=== PATIENT | male | born 2000 ===

== ENCOUNTER 2020-10-14 20:56 | Emergency (ER) | payer SELFPAY ==
[2020-10-14 21:25] LABS: Basophils % 1.2 % (0-1.3); MPV 9.6 fL (7.6-11.3); RBC Red Blood Cell Count 5.24 M/uL (4.33-5.43)
[2020-10-14] MEDS ORDERED: MORPHINE 2 MG/ML SYR ONE (21:32)
[2020-10-14 21:45] LABS: Protime INR 1.03
[2020-10-14 21:56] LABS: ALT/SGPT 54 U/L (12-78); AST/SGOT 27 U/L (15-37); Albumin 4.3 g/dL (3.4-5.0); Alkaline Phosphatase 150 U/L (45-117); BUN Blood Urea Nitrogen 21 mg/dL (7-18); Bicarbonate 25 mmol/L (21-32); Bilirubin Direct 0.1 mg/dL (0-0.2); Bilirubin Total 0.5 mg/dL (0.2-1.0); Glucose Level 93 mg/dL (74-106); Potassium 3.3 mmol/L (3.5-5.1); Protein, Total 7.6 g/dL (6.4-8.2); Sodium Level 141 mmol/L (136-145); Troponin (Emerg Dept Use Only) < 0.02 ng/mL (0.0-0.045)
--- NOTE | 2020-10-14 23:14 | EDPHYS ---
Physician Documentation [facility] Name: Marquise Quezada Age: 19 yrs Sex: Male : 2000 Arrival Date: 10/14/2020 Time: 20:58 Bed 6 Private MD: ED Physician Dereje Leblanc HPI: 10/14 21:10 This 19 yrs old Male presents to ER via EMS with complaints of Crush Injury - approx 5 cp mins pinned under a vehicle. 21:10 The patient or guardian reports chest pain that is located primarily in the anterior cp chest wall, right. The pain does not radiate. 21:10 Patient reports he was working underneath car in prone position when vehicle fell from ramana onto back pinning him against floor for approximately 5 minutes. Historical: - Allergies: 21:05 No Known Allergies; rr5 - Home Meds: 21:05 keeps hair medication [Active]; rr5 - PMHx: 21:05 None; rr5 - PSHx: 21:05 None; rr5 - Immunization history:: Adult Immunizations up to date. - Social history:: Smoking status: unknown Patient uses alcohol, occasionally. - Immunization history: Last tetanus immunization: unknown. ROS: 21:15 Constitutional: Negative for body aches, chills, fever, poor PO intake. cp 21:15 Eyes: Negative for injury, pain, redness, and discharge. cp 21:15 Neck: Negative for pain with movement, pain at rest, stiffness. 21:15 Cardiovascular: Positive for chest pain, Negative for edema, palpitations. 21:15 Respiratory: Negative for cough, shortness of breath, wheezing. 21:15 Abdomen/GI: Negative for abdominal pain, nausea, vomiting, and diarrhea. 21:15 MS/extremity: Negative for injury or acute deformity, decreased range of motion, paresthesias. 21:15 Neuro: Negative for altered mental status, headache, loss of consciousness, syncope, weakness. 21:15 All other systems are negative. Exam: 21:20 ECG was reviewed by the Attending Physician. cp 21:22 Constitutional: The patient appears in no acute distress, alert, awake, cp non-diaphoretic, non-toxic, well developed, well nourished. 21:22 Head/Face: Normocephalic, atraumatic. cp 21:22 Eyes: Periorbital structures: appear normal, Conjunctiva: normal, no exudate, no injection, Lids and lashes: appear normal, bilaterally. 21:22 ENT: External ear(s): are unremarkable, Nose: is normal, Posterior pharynx: Airway: no evidence of obstruction, patent. 21:22 Neck: C-spine: vertebral tenderness, is not appreciated, crepitus, is not appreciated, ROM/movement: is normal, is supple, without pain, no range of motions limitations. 21:22 Chest/axilla: Inspection: normal, Palpation: crepitus, is not appreciated, tenderness, that is moderate, of the anterior aspect of right upper chest and mid-sternal area, that partially reproduces the patient's complaints. 21:22 Cardiovascular: Rate: normal, Rhythm: regular, Pulses: Pulses are 2+ in right radial artery and left radial artery. JVD: is not appreciated. 21:22 Respiratory: the patient does not display signs of respiratory distress, Respirations: normal, no use of accessory muscles, no retractions, labored breathing, is not present, Breath sounds: are clear throughout, no decreased breath sounds, no stridor, no wheezing. 21:22 Abdomen/GI: Inspection: abdomen appears normal, Bowel sounds: active, all quadrants, Palpation: abdomen is soft and non-tender, in all quadrants, rebound tenderness, is not appreciated, voluntary guarding, is not appreciated, involuntary guarding, is not appreciated. 21:22 Back: pain, that is mild, of the left scapular area, right scapular area, left subscapular area, right subscapular area and thoracic area, ROM is normal. 21:22 Musculoskeletal/extremity: Exam is negative for decreased range of motion, deformity, injury. 21:22 Neuro: Orientation: to person, place \T\ time. Mentation: is normal, Motor: moves all fours, strength is normal. Vital Signs: 20:59 BP 138 / 90; Pulse 91; Resp 18; Temp 98; Pulse Ox 99% on R/A; mg2 20:59 Weight 72.57 kg; Height 5 ft. 53 in. (287.02 cm); rr5 22:30 BP 119 / 76; Pulse 88; Resp 17; Pulse Ox 98% ; rr5 23:30 BP 121 / 70; Pulse 90; Resp 17; Pulse Ox 98% ; rr5 20:59 Body Mass Index 8.81 (72.57 kg, 287.02 cm) rr5 [place] Coma Score: 20:59 Eye Response: spontaneous(4). Verbal Response: oriented(5). Motor Response: obeys mg2 commands(6). Total: 15. 22:30 Eye Response: spontaneous(4). Verbal Response: oriented(5). Motor Response: obeys rr5 commands(6). Total: 15. 23:30 Eye Response: spontaneous(4). Verbal Response: oriented(5). Motor Response: obeys rr5 commands(6). Total: 15. Trauma Score (Adult): 20:59 Eye Response: spontaneous(1); Verbal Response: oriented(1); Motor Response: obeys mg2 commands(2); Systolic BP: > 89 mm Hg(4); Respiratory Rate: 10 to 29 per min(4); Hao Score: 15; Trauma Score: 12 22:30 Eye Response: spontaneous(1); Verbal Response: oriented(1); Motor Response: obeys rr5 commands(2); Systolic BP: > 89 mm Hg(4); Respiratory Rate: 10 to 29 per min(4); [place]ao Score: 15; Trauma Score: 12 23:30 Eye Response: spontaneous(1); Verbal Response: oriented(1); Motor Response: obeys rr5 commands(2); Systolic BP: > 89 mm Hg(4); Respiratory Rate: 10 to 29 per min(4); [place] Score: 15; Trauma Score: 12 MDM: 21:03 Patient medically screened. 21:20 Differential diagnosis: abnormal EKG, acute myocardial infarction, chest wall pain, cp pneumothorax, fracture, cardiac contusion. 23:10 Data reviewed: vital signs, nurses notes, lab test result(s), EKG, radiologic studies, cp CT scan, and as a result, I will discharge patient. 23:10 Test interpretation: by ED physician or midlevel provider: ECG. Counseling: I had a cp detailed discussion with the patient and/or guardian regarding: the historical points, exam findings, and any diagnostic results supporting the discharge/admit diagnosis, lab results, radiology results, to return to the emergency department if symptoms worsen or persist or if there are any questions or concerns that arise at home. ED course: VSS. Pain improved with meds. CT chest negative for acute trauma. Will discharge to home for continued monitoring. 10/14 21:05 Order name: Basic Metabolic Panel cp 10/14 21:05 Order name: CBC with Diff cp 10/14 21:05 Order name: LFT's cp 10/14 21:05 Order name: PT-INR cp 10/14 21:05 Order name: Troponin (emerg Dept Use Only) cp 10/14 21:27 Order name: CBC with Automated Diff; Complete Time: 23:09 EDMS 10/14 21:05 Order name: CT Chest W/ Con cp 10/14 21:53 Order name: Protime (+INR); Complete Time: 23:09 EDMS 10/14 21:57 Order name: Basic Metabolic Panel; Complete Time: 23:09 EDMS 10/14 23:09 Interpretation: Normal except: K 3.3; CL 108; BUN 21. cp 03 21:57 Order name: Liver (Hepatic) Function; Complete Time: 23:09 EDMS 10/14 21:57 Order name: Troponin (Emerg Dept Use Only); Complete Time: 23:09 EDMS 10/14 21:05 Order name: EKG; Complete Time: 21:07 cp 10/14 21:05 Order name: Cardiac monitoring; Complete Time: 21:17 cp 10/14 21:05 Order name: EKG - Nurse/Tech; Complete Time: 21:17 cp 10/14 21:05 Order name: IV Saline Lock; Complete Time: 21:17 cp 10/14 21:05 Order name: Labs collected and sent; Complete Time: 21:18 cp 10/14 21:05 Order name: O2 Per Protocol; Complete Time: 21:18 cp 10/14 21:05 Order name: O2 Sat Monitoring; Complete Time: 21:18 cp EC:20 Rate is 77 beats/min. Rhythm is regular. OR interval is normal. QRS interval is cp prolonged at 102 msec. QT interval is normal. T waves are Inverted in lead aVR. Interpreted by me. Reviewed by me. Administered Medications: 21:57 Not Given (Patient Refused): morphine 2 mg IVP once; (PAIN>8) RASS on ADMN: Combtv4, mg2 Very Agttd3, Agttd2, Rstlss1, AlertClm0, Drwsy-1, LtSdtn-2, ModSdtn-3, DpSdtn-4, UnArsble-5 x2 23:24 Drug: TORadol - Ketorolac 15 mg Route: IVP; Site: right antecubital; mg2 23:32 Follow up: Response: No adverse reaction rr5 23:24 Drug: Potassium Effervescent Tablet 50 mEq Route: PO; mg2 23:32 Follow up: Response: No adverse reaction rr5 Disposition: 10/15 03:14 Co-signature as Attending Physician, Dereje Leblanc MD. mh7 Disposition: 10/14/20 23:13 Discharged to Home. Impression: Other chest pain - crush injury from car. - Condition is Stable. - Discharge Instructions: Chest Wall Pain. - Prescriptions for Ibuprofen 800 mg Oral Tablet - take 1 tablet by ORAL route every 8 hours As needed take with food; 30 tablet. - Medication Reconciliation Form, Thank You Letter, Antibiotic Education, Prescription Opioid Use form. - Follow up: Private Physician; When: 1 - 2 days; Reason: Worsening of condition. - Problem is new. - Symptoms have improved. Signatures: Dispatcher [employer] EDMS Braxton Sun PA PA cp Romain Fitzgerald RN RN mg2 Adal Story RN RN rr5 Dereje Leblanc MD MD 7 Corrections: (The following items were deleted from the chart) 10/14 23:32 23:13 10/14/2020 23:13 Discharged to Home. Impression: Other chest pain - crush injury rr5 from car. Condition is Stable. Forms are Medication Reconciliation Form, Thank You Letter, Antibiotic Education, Prescription Opioid Use. Follow up: Private Physician; When: 1 - 2 days; Reason: Worsening of condition. Problem is new. Symptoms have improved. cp
--- NOTE | 2020-10-14 23:14 | ER ---
Nurse's Notes [facility] Name: Marquise Quezada Age: 19 yrs Sex: Male : 2000 Arrival Date: 10/14/2020 Time: 20:58 Bed 6 Private MD: Diagnosis: Other chest pain-crush injury from car Presentation: 10/14 20:59 Chief complaint: EMS states: patient working underneath the car then the ramana slipped rr5 he got pinned approximate 5 minutes under the vehicle. no deformity, lungs clear, pain on the anterior chest. Coronavirus screen: Client denies travel out of the [place] in the last 14 days. At this time, the client does not indicate any symptoms associated with coronavirus-19. Ebola Screen: Patient negative for fever greater than or equal to 101.5 degrees Fahrenheit, and additional compatible Ebola Virus Disease symptoms Patient denies exposure to infectious person. Patient denies travel to an Ebola-affected area in the 21 days before illness onset. Initial Sepsis Screen: Does the patient meet any 2 criteria? No. Patient's initial sepsis screen is negative. Does the patient have a suspected source of infection? No. Patient's initial sepsis screen is negative. Risk Assessment: Do you want to hurt yourself or someone else? Patient reports no desire to harm self or others. Onset of symptoms was October 14, 2020. 20:59 Method Of Arrival: EMS: [facility] rr5 20:59 Acuity: HERMAN 2 rr5 21:00 Care prior to arrival: None. Mechanism of Injury: Crush injury from car that had rr5 unknown weight. Patient was trapped for approximately 5 minutes. Trauma event details: Injury occurred in the [facility], Injury occurred: garage Injury occurred: October 14, 2020. Trauma Activation: Alert Physician: ED Physician; Name: dr. leblanc; Notified At: 21:00; Arrived At: 21:02 Physician: General Surgeon; Name: ; Notified At: 21:00; Arrived At: Physician: Radiology; Name: william; Notified At: 21:00; Arrived At: 21:05 Physician: Respiratory; Name: ; Notified At: 21:00; Arrived At: Physician: Kaia; Name: ; Notified At: 21:00; Arrived At: Historical: - Allergies: 21:05 No Known Allergies; rr5 - Home Meds: 21:05 keeps hair medication [Active]; rr5 - PMHx: 21:05 None; rr5 - PSHx: 21:05 None; rr5 - Immunization history:: Adult Immunizations up to date. - Social history:: Smoking status: unknown Patient uses alcohol, occasionally. - Immunization history: Last tetanus immunization: unknown. Screenin:00 Abuse screen: Denies threats or abuse. Denies injuries from another. Nutritional mg2 screening: No deficits noted. Tuberculosis screening: No symptoms or risk factors identified. Fall Risk None identified. Primary Survey: 21:02 NO uncontrolled hemorrhage observed. A: The patient is alert. Breathing/Chest: mg2 Respiratory pattern: regular, Respiratory effort: spontaneous, unlabored. Circulation: Skin color: pink. Disability Alert. Exposure/Environment: All clothing and personal items were removed. Forensic evidence collection is not deemed to be indicated at this time. Items placed in patient belonging bag. There is no evidence of uncontrolled external bleeding. No obvious injuries are noted at this time. 22:00 Reassessment Airway Airway Patent Breathing/Chest Respiratory pattern Regular rr5 Respiratory effort Spontaneous Unlabored Breath sounds Clear Chest inspection Symmetrical Circulation Pulses Palpable Disability Alert. Secondary Survey: 21:02 HEENT: No deficits noted. Gastrointestinal: No deficits noted. : No deficits noted. mg2 Musculoskeletal: Circulation, motion, and sensation intact. Capillary refill < 3 seconds. Assessment: 21:00 General: Appears in no apparent distress. comfortable, Behavior is calm, cooperative. mg2 Pain: Complains of pain in chest. Neuro: Level of Consciousness is awake, alert, obeys commands, Oriented to person, place, time, situation. Cardiovascular: Capillary refill < 3 seconds Patient's skin is warm and dry. Respiratory: Airway is patent Respiratory effort is even, unlabored, Respiratory pattern is regular, symmetrical. GI: No signs and/or symptoms were reported involving the gastrointestinal system. : No signs and/or symptoms were reported regarding the genitourinary system. EENT: No signs and/or symptoms were reported regarding the EENT system. Derm: Skin is intact, is healthy with good turgor, Skin is pink, warm \T\ dry. normal, redness in the right chest. Musculoskeletal: Circulation, motion, and sensation intact. Capillary refill < 3 seconds. 21:39 Reassessment: patient is back from CT scan. mg2 21:46 Reassessment: Patient appears in no apparent distress at this time. Patient is alert, rr5 oriented x 3, equal unlabored respirations, skin warm/dry/pink. awaiting for results. 22:20 Reassessment: Patient appears in no apparent distress at this time. Patient is alert, rr5 oriented x 3, equal unlabored respirations, skin warm/dry/pink. 23:27 Reassessment: Patient appears in no apparent distress at this time. Patient is alert, rr5 oriented x 3, equal unlabored respirations, skin warm/dry/pink. discharge instruction given and explained without complaints made. Vital Signs: 20:59 BP 138 / 90; Pulse 91; Resp 18; Temp 98; Pulse Ox 99% on R/A; mg2 20:59 Weight 72.57 kg; Height 5 ft. 53 in. (287.02 cm); rr5 22:30 BP 119 / 76; Pulse 88; Resp 17; Pulse Ox 98% ; rr5 23:30 BP 121 / 70; Pulse 90; Resp 17; Pulse Ox 98% ; rr5 20:59 Body Mass Index 8.81 (72.57 kg, 287.02 cm) rr5 [place] Coma Score: 20:59 Eye Response: spontaneous(4). Verbal Response: oriented(5). Motor Response: obeys mg2 commands(6). Total: 15. 22:30 Eye Response: spontaneous(4). Verbal Response: oriented(5). Motor Response: obeys rr5 commands(6). Total: 15. 23:30 Eye Response: spontaneous(4). Verbal Response: oriented(5). Motor Response: obeys rr5 commands(6). Total: 15. Trauma Score (Adult): 20:59 Eye Response: spontaneous(1); Verbal Response: oriented(1); Motor Response: obeys mg2 commands(2); Systolic BP: > 89 mm Hg(4); Respiratory Rate: 10 to 29 per min(4); [place] Score: 15; Trauma Score: 12 22:30 Eye Response: spontaneous(1); Verbal Response: oriented(1); Motor Response: obeys rr5 commands(2); Systolic BP: > 89 mm Hg(4); Respiratory Rate: 10 to 29 per min(4); Hao Score: 15; Trauma Score: 12 23:30 Eye Response: spontaneous(1); Verbal Response: oriented(1); Motor Response: obeys rr5 commands(2); Systolic BP: > 89 mm Hg(4); Respiratory Rate: 10 to 29 per min(4); Hao Score: 15; Trauma Score: 12 ED Course: 20:58 Patient arrived in ED. sg 20:58 Adal Story, JAYASHREE is Primary Nurse. rr5 21:00 Braxton Sun PA is PHCP. cp 21:00 Dereje Leblanc MD is Attending Physician. cp 21:00 Arm band placed on right wrist. rr5 21:02 Patient has correct armband on for positive identification. mg2 21:02 Patient maintains SpO2 saturation greater than 95% on room air. mg2 21:05 Triage completed. rr5 21:06 electronic device monitor on. Pulse ox on. NIBP on. rr5 21:06 Thermoregulation: warm blanket given to patient. rr5 21:18 Inserted saline lock: 20 gauge in right antecubital area, using aseptic technique. mg2 Blood collected. by JOSSY Cruz tech. 23:26 No provider procedures requiring assistance completed. IV discontinued, intact, rr5 bleeding controlled, No redness/swelling at site. Pressure dressing applied. 03 12:49 CT Chest W/ Con In Process Unspecified. EDMS Administered Medications: 03 21:57 Not Given (Patient Refused): morphine 2 mg IVP once; (PAIN>8) RASS on ADMN: Combtv4, mg2 Very Agttd3, Agttd2, Rstlss1, AlertClm0, Drwsy-1, LtSdtn-2, ModSdtn-3, DpSdtn-4, UnArsble-5 x2 23:24 Drug: TORadol - Ketorolac 15 mg Route: IVP; Site: right antecubital; mg2 23:32 Follow up: Response: No adverse reaction rr5 23:24 Drug: Potassium Effervescent Tablet 50 mEq Route: PO; mg2 23:32 Follow up: Response: No adverse reaction rr5 Intake: 20:59 PO: 0ml; Total: 0ml. mg2 Outcome: 23:13 Discharge ordered by . cp 23:26 Discharged to home ambulatory. rr5 23:26 Condition: stable 23:26 Discharge instructions given to patient, Instructed on discharge instructions, follow up and referral plans. medication usage, Demonstrated understanding of instructions, follow-up care, medications, Prescriptions given X 1. 23:30 Patient's length of stay was not longer than 2 hours. rr5 23:32 Patient left the ED. rr5 Signatures: Dispatcher [employer] EDMS Tamir Lees RN RN sg Braxton Sun, ANGEL PA Romain Rosario, JAYASHREE RN mg2 Adal Story RN RN rr5
[2020-10-14] MEDS ORDERED: POTASSIUM 25 MEQ EFFERV TAB ONE (23:35)
[2020-10-14] MEDS ORDERED: KETOROLAC 30 MG/ML INJ ONE (23:35)
[2020-10-15 01:40] VITALS: BP 121/70; O2SAT 98
[2020-10-15 01:41] VITALS: TEMP 98
--- NOTE | 2020-10-15 22:02 | RAD REPORT ---
EXAM DESCRIPTION: CT - Thorax W/ Con - 10/15/2020 6:42 am [facility]: CT CHEST WITH IV CONTRAST CLINICAL HISTORY: Chest pain, car fell from [place] and landed on back. COMPARISON: None. TECHNIQUE: CT of the chest was performed following intravenous administration of iodinated contrast. Axial, coronal, and sagittal reconstructions were created and sent to PACS. This exam was performed according to our departmental dose-optimization program, which includes autom ated exposure control, adjustment of the mA and/or kV according to patient size and/or use of iterati ve reconstruction technique. FINDINGS: Lungs and pleura: No pulmonary consolidation. No pleural effusion. No pneumothorax. Mediastinum and neck: No mediastinal lymphadenopathy by CT size criteria. Unremarkable appearance of the thyroid gland. Cardiovascular: No cardiomegaly or pericardial effusion. No thoracic aortic aneurysm or dissection. Abdomen: No significant upper abdominal abnormality identified. Musculoskeletal: No concerning or acute osseous abnormality. IMPRESSION: No evidence of acute intrathoracic abnormality. Electronically signed by: Bernarda Austin MD 10/14/2020 9:51 PM [facility] Due to temporary technical issues with the PACS/Fluency reporting system, reports are being signed by the in house radiologists without review as a courtesy to insure prompt reporting. The interpreting radiologist is fully responsible for the content of the report.
== END 2020-10-14 23:32 | disposition home or self-care (01) ==
LOC: ER 20:56
DX: R07.89 Other chest pain (principal); W23.1XXA Caught, crushed, jammed, or pinched between stationary objects, initial encounter; Y93.89 Activity, other specified; Y92.9 Unspecified place or not applicable
CPT/HCPCS: 36415; 71260; 80048; 80076; 84484; 85025; 85610; 93005; 96374; 99285; G0390; J2270; Q9967